=== PATIENT | female | born 1960 | race Caucasian/White ===

== ENCOUNTER 2020-06-10 14:15 | Emergency (ER) | payer OTHER ==
[~2020-06-10] VITALS: Ht 154.9 cm; Wt 90.0 kg
[2020-06-10] MEDS ORDERED: HYDROCODONE/ACETAMINOPHEN 5/325MG TABLET PO ONE (15:00)
[2020-06-10] MEDS ORDERED: KETOROLAC 15MG/ML VIAL IM ONE (16:15)
[2020-06-10] MEDS ORDERED: HYDR-4001 MT (16:22)
[2020-06-10 16:38] VITALS: BP 132/87
== END 2020-06-10 16:41 | disposition home or self-care (01) ==
LOC: ER 14:15
DX: M54.9 Dorsalgia, unspecified (principal); R51.9 Headache, unspecified
CPT/HCPCS: 70450; 71046; 96372; 99284; J1885